=== PATIENT | male | born 1970 | race Caucasian/White ===

== ENCOUNTER 2016-08-02 12:45 | Emergency (ER) | payer OTHER ==
[~2016-08-02] VITALS: Ht 180.3 cm; Wt 113.4 kg
[~2016-08-02 12:45] MED LIST: ECOTRIN81 MG PO; EXCEDRIN EXTRA1 SGL PO; KEFLEX500 MG PO; MOTRIN800 MG PO; PERCOCET 325 MG1 TA2 PO; TEMOVATE0.05% TOP
--- NOTE | 2016-08-02 13:18 | ED EYE COMPLAINT ---
History of Present Illness General Chief Complaint: Eye Problems Stated Complaint: FOREIGN BODY R EYE Source: patient Exam Limitations: no limitations Vital Signs & Intake/Output Vital Signs & Intake/Output Vital Signs Date Time Temp Pulse Resp B/P Pulse O2 O2 Flow FiO2 Ox Delivery Rate 08/02 1319 72 173/88 08/02 1248 96.5 77 16 180/113 96 Room Air Allergies Coded Allergies: iodine (Mild, REDNESS 08/02/16) Reconcile Medications Aspirin (Ecotrin) 81 MG ECT 1 TAB PO DAILY HEART (Reported) ASPIRIN/ACETAMINOPHEN/CAFFEINE (Excedrin Extra Strength Gelcap) (Unknown Strength) SGL (Unknown Dose) PO PRN PAIN (Reported) Cephalexin (Keflex) 500 MG CAP 1 TAB PO 4 TIMES/DAY INFECTION Clobetasol Propionate (Temovate) 0.05% CRE 1 RANI TOP PRN SKIN (Reported) apply to affected area(s) Ibuprofen (Motrin) 800 MG TAB 1 TAB PO TID PRN PAIN OXYCODONE HCL/ACETAMINOPHEN (Percocet 5-325 MG Tablet) 325 MG/5 MG TAB 1 TAB PO Q4-6 PRN PRN BREAKTHROUGH PAIN Polytrim (Polytrim Eye Drops) 10,000 UNIT-1 MG/ML DROPS 1 GTT OPH Q6 FOREIGN BODY USE FOR 7 DAYS Triage Note: PT STATES THAT AROUND 0930 HE WAS USING A NAIL GUN WHEN A PIECE OF METAL HIT HIM IN HIS L EYE , PT DENIES VISION PROBLEMS, SCLERA NOTED TO BE RED Triage Nurses Notes Reviewed? yes HPI: Patient is a 45-year-old male presents complaining of foreign body to his left eye. Patient was using a nail gun when he felt sharp pain to his left eye. This occurred at approximately 9:30 AM this morning. Patient went to an urgent care clinic and was referred to the emergency department for further evaluation. Pain is currently 10 out of 10 sharp pain, worsens with blinking. Patient does not have an eye doctor. (THI SERRA,STARR) Past History Travel History Traveled to [place] past 21 day No Medical History Any Pertinent Medical History? see below for history Neurological: NONE EENT: NONE Cardiovascular: myocardial infarction, CARDIAC STENT Respiratory: NONE Gastrointestinal: NONE Renal: NONE Musculoskeletal: NONE Psychiatric: NONE Endocrine: NONE Blood Disorders: NONE Cancer(s): NONE [employer]/Reproductive: NONE Tetanus Vaccine: 05/23/13 Surgical History Surgical History: non-contributory Psychosocial History Who do you live with Spouse What is your primary language Frisian Tobacco Use: Never used ETOH Use: denies use Illicit Drug Use: denies illicit drug use Family History Hx Contributory? No (STARR NEFF) Review of Systems Review of Systems Constitutional: Reports: no symptoms. Eyes: Reports: see HPI. Musculoskeletal: Reports: no symptoms. Skin: Reports: no symptoms. Neurological/Psychological: Reports: headache. Hematologic/Endocrine: Denies: bruising, bleeding. Immunologic/Allergic: Denies: splenectomy. (STARR NEFF) Physical Exam General Appearance: well developed/nourished, alert, awake General Inspection: metallic foreign body present in the left medial eye. Mild surrounding injection. Pupil equal, round, reactive. Extraocular movements intact. Eyelid: normal inspection Conjunctiva/Sclera: foreign material Cornea: examined w/fluorescein, foreign body EOM: intact Pupil: normal accommodation General Inspection: normal inspection Physical Exam Head: atraumatic, normal appearance Nose: normal inspection Mouth/Throat: normal mouth inspection Neck: normal inspection, supple, full range of motion Cardiovascular/Respiratory: no respiratory distress Neurologic/Psych: no motor/sensory deficits, awake, alert, oriented x 3, normal gait, normal mood/affect Skin: intact, normal color, warm/dry (STARR NEFF) Progress Differential Diagnosis: corneal abrasion, corneal foreign body, globe rupture Plan of Care: Visual acuity 20/30 left eye, 20/20 both eyes with snellen eye chart. 4 drops of tetracaine instilled to left eye. Unable to remove foreign body with cotton swab. Tweezers used and a 0.5 cm metallic foreign body was removed. Appears that there is a very small remaining metallic foreign body that I was unable to remove. This was discussed with the patient and the importance of close ophthalmology follow-up discussed. (STARR NEFF) Departure Departure Time of Disposition: 1318 Disposition: HOME OR SELF CARE Condition: Stable Clinical Impression Primary Impression: Foreign body of left eye Qualifiers: Encounter type: initial encounter Qualified Code: T15.92XA - Foreign body on external eye, part unspecified, left eye, initial encounter Referrals: ALEXA MOREAU MD PATIENT HAS NO PRIMARY CARE DR (PCP/Family) CASH JACOBS MD Additional Instructions: Use the antibiotic eyedrops as directed. Follow-up with Dr. Jacobs(eye doctor) on Thursday, call Thursday morning for appointment. Return to the emergency Department immediately if increasing pain, vision worsening, or worsening of symptoms. Follow up with Dr. Moreau(primary doctor) to establish a primary doctor and for further evaluation of your blood pressure that was elevated in the emergency department. Departure Forms: Customer Survey General Discharge Information Prescriptions: Current Visit Scripts Polytrim (Polytrim Eye Drops) 1 GTT OPH Q6 #1 BOT USE FOR 7 DAYS (THI SERRA,STARR) PA/INDIGO MIXER Co-Sign Statement Statement: ED Attending supervision documentation- [] I saw and evaluated the patient. I have also reviewed all the pertinent lab results and diagnostic results. I agree with the findings and the plan of care as documented in the PA's/INDIGO MIXER's documentation. [X] I have reviewed the ED Record and agree with the PA's/INDIGO MIXER's documentation. [] Additions or exceptions (if any) to the PAs/INDIGO MIXER's note and plan are summarized below: [] (STEPHANIE VENEGAS,DEONDRE)
[2016-08-02 13:19] VITALS: BP 173/88
[2016-08-02] MEDS ORDERED: POLYTRIM EYE DR10 ML OPH (13:21)
== END 2016-08-02 13:26 ==
LOC: ERH 12:45
DX: T15.92XA Foreign body on external eye, part unspecified, left eye, initial encounter (principal)

== ENCOUNTER 2017-12-27 10:51 | Emergency (ER) | payer SELFPAY ==
[~2017-12-27 10:51] MED LIST changes: +POLYTRIM EYE DR10 ML OPH
--- NOTE | 2017-12-27 11:50 | ED UPPER/LOWER EXTREMITY COMPL ---
History of Present Illness General Chief Complaint: Lower Extremity Problems Stated Complaint: R KNEE SWELLING Source: patient, family Exam Limitations: no limitations Vital Signs & Intake/Output Vital Signs & Intake/Output Vital Signs Date Time Temp Pulse Resp B/P B/P Pulse O2 O2 Flow FiO2 Mean Ox Delivery Rate 12/27 1100 96.6 87 15 143/91 97 Room Air Room Air Allergies Coded Allergies: iodine (Mild, REDNESS 12/27/17) Reconcile Medications Aspirin (Ecotrin) 81 MG ECT 1 TAB PO DAILY HEART (Reported) ASPIRIN/ACETAMINOPHEN/CAFFEINE (Excedrin Extra Strength Gelcap) (Unknown Strength) SGL (Unknown Dose) PO PRN PAIN (Reported) Cephalexin (Keflex) 500 MG CAP 1 TAB PO 4 TIMES/DAY INFECTION Clobetasol Propionate (Temovate) 0.05% CRE 1 RANI TOP PRN SKIN (Reported) apply to affected area(s) Ibuprofen (Motrin) 800 MG TAB 1 TAB PO TID PRN PAIN OXYCODONE HCL/ACETAMINOPHEN (Percocet 5-325 MG Tablet) 325 MG/5 MG TAB 1 TAB PO Q4-6 PRN PRN BREAKTHROUGH PAIN Polytrim (Polytrim Eye Drops) 10,000 UNIT-1 MG/ML DROPS 1 GTT OPH Q6 FOREIGN BODY USE FOR 7 DAYS Triage Note: PT TO ED FOR C/C OF R KNEE PAIN WITHOUT KNOWN INJURY THAT STARTED YESTERDAY AND PAIN RADIATES DOWN LEG. PAIN WORSE WITH AMBULATION. SWELLING NOTED TO ANKLE WHICH IS NEW TODAY. TOOK ALEVE AT HOME BEFORE ARRIVAL. Triage Nurses Notes Reviewed? yes HPI: 47M no significant PMH woke up this morning with right knee swelling and pain. Patient has a history of 5 surgeries on his right knee in [place] many years ago, and gets intermittent pain in his knee from time to time, but not swelling like this. He is ok sitting but has pain when walking. The knee is slightly swollen and warm. He denies any trauma, did not fall or slip, no insect bites or penetrating injuries. Denies fever, chills, nausea, vomiting, chest pain, SOB, abdominal pain. No discharge or wounds surrounding the knee. Has some swelling behind his knee but says this is chronic. Thinks his right foot is slightly bigger than his left from this morning. No immobilization or history of VTE. Past History Travel History Traveled to [place] past 21 day No Medical History Any Pertinent Medical History? 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 No Review of Systems Review of Systems Constitutional: Reports: no symptoms. EENTM: Reports: no symptoms. Respiratory: Reports: no symptoms. Cardiovascular: Reports: no symptoms. Gastrointestinal/Abdominal: Reports: no symptoms. Genitourinary: Reports: no symptoms. Musculoskeletal: Reports: no symptoms. Skin: Reports: no symptoms. Neurological/Psychological: Reports: no symptoms. Hematologic/Endocrine: Reports: no symptoms. Immunological: Reports: no symptoms. All Other Systems: Reviewed and Negative Physical Exam Physical Exam General Appearance: well developed/nourished, no apparent distress Head: atraumatic, normal appearance Eyes: Bilateral: normal appearance. Ears, Nose, Throat: hearing grossly normal Neck: normal inspection, full range of motion Cardiovascular/Respiratory: normal breath sounds, regular rate/rhythm Back: normal inspection, normal range of motion Leg Left: normal range of motion, normal inspection Leg Right: normal range of motion, normal inspection Hip Left: normal range of motion, normal inspection Hip Right: normal range of motion, normal inspection Knee Left: normal range of motion, normal inspection Knee Right: warmth and mild swelling, no tenderness or fluctuance, no erythema Foot Left: normal inspection, normal range of motion Foot Right: normal inspection, normal range of motion Progress Differential Diagnosis: cellulitis, compartment syndrome, dislocation, DVT, fracture, gout, septic arthritis, sprain Plan of Care: Orders Procedure Date/time Status HIGH SENSITIVITY CRP 12/27 1205 Complete WESTERGREN SED RATE 12/27 1205 Complete BLOOD CULTURE 12/27 1149 Active COMPREHENSIVE METABOLIC PANEL 12/27 1149 Complete CBC WITHOUT DIFFERENTIAL 12/27 1149 Complete Laboratory Tests 12/27/17 1205: Anion Gap 9, Estimated GFR > 60, BUN/Creatinine Ratio 21.4, Glucose 111 H, Calcium 9.1, Total Bilirubin 0.4, AST 23, ALT 49, Alkaline Phosphatase 77, C- React Prot High Sens 4.0 H, Total Protein 6.8, Albumin 3.8, Globulin 3.0, Albumin/Globulin Ratio 1.3, CBC w Diff NO MAN DIFF REQ, RBC 4.73, MCV 91.1, MCH 31.2 H, MCHC 34.2, RDW 13.9, MPV 8.7, Gran % 49.6, Lymphocytes % 35.9, Monocytes % 10.0 H, Eosinophils % 4.1, Basophils % 0.4, Absolute Granulocytes 4.8, Absolute Lymphocytes 3.5 H, Absolute Monocytes 1.0 H, Absolute Eosinophils 0.4, Absolute Basophils 0, ESR Westergren 6 12/27/17 1154: C-React Prot High Sens Cancelled, ESR Westergren Cancelled Microbiology 12/27 1205 BLOOD: Blood Culture - RECD 12/27 1149 BLOOD: Blood Culture - ORD Diagnostic Imaging: Viewed by Me: Radiology Read, Ultrasound. Discussed w/RAD: Radiology Read, Ultrasound. Radiology Impression: PATIENT: HERNANDEZ DIEHL PRESENT AGE: 47 PATIENT ACCOUNT NO: [id number] : 70 LOCATION: [facility] ORDERING PHYSICIAN: Pebbles Khan MD SERVICE DATE: 12/27/17 EXAM TYPE: US - US -UNILATERAL VENOUS DOPPLER EXAMINATION: US TRIPLEX LOWER EXTREMITY, RIGHT CLINICAL INFORMATION: Pain. COMPARISON: None TECHNIQUE: Color-flow triplex imaging with spectral analysis and compression Doppler were performed on the lower extremity. FINDINGS: Respiratory variation, normal compression and augmented flow are noted throughout the lower extremity. The visualized common femoral vein, superficial femoral vein, profunda femoral vein, popliteal vein and midcalf peroneal and posterior tibial venous segments show no evidence of deep venous thrombosis. There is a small 1.8 x 2.5 x 1 cm fluid collection in the popliteal fossa. IMPRESSION: No evidence of deep venous thrombosis involving the lower extremity. Small popliteal fossa Nye's cyst. DICTATED BY: Edmundo Coello MD DATE/TIME DICTATED:12/27/171257 PHYSICIAN SUPPORT COORDINATOR:ERI DATE/ TIME TRANSCRIBED:12/27/171257 CONFIDENTIAL, DO NOT COPY WITHOUT APPROPRIATE AUTHORIZATION., PATIENT: HERNANDEZ DIEHL PRESENT AGE: 47 PATIENT ACCOUNT NO: [id number] : 70 LOCATION: [facility] ORDERING PHYSICIAN: Jefry Gallagher MD SERVICE DATE: 12/27/17 EXAM TYPE: RAD - XRY-KNEE COMPLETE RIGHT EXAMINATION: XR KNEE, RIGHT CLINICAL INFORMATION: Right leg swelling and pain. COMPARISON: None TECHNIQUE: Four views of the right knee. FINDINGS: Bulky ossification is present along the superficial surface of the talus and at the superior and inferior patellar poles at the ligamentous and tendinous insertions. There is a linear lucency across the inferior portion of the bulky ossification. Prepatellar soft tissue swelling noted in addition to infrapatellar soft tissue swelling. There is mild degenerative spurring along the articular surface of the medial compartment joint space from the tibia. No significant joint space narrowing is evident. No dislocation is seen. A small joint effusion is evident. IMPRESSION: Heterotopic ossification from presumed enthesophytes overlying the superficial patella with a linear lucency across the inferior portion, suspicious for traumatic injury of indeterminate age. Prepatellar and infrapatellar soft tissue swelling. Small joint effusion. If there is concern for tendinous or ligamentous soft tissue injury, a follow-up MRI could be obtained to exclude an underlying tear. DICTATED BY: Edmundo Coello MD DATE/TIME DICTATED:12/27/171138 PHYSICIAN SUPPORT COORDINATOR:ERI DATE/TIME TRANSCRIBED:12/27/171138 CONFIDENTIAL, DO NOT COPY WITHOUT APPROPRIATE AUTHORIZATION. <Electronically signed in Other Vendor System> SIGNED BY: Edmundo Coello MD 12/27/17 1151 Departure Departure Disposition: HOME OR SELF CARE Condition: Stable Clinical Impression Primary Impression: Knee osteoarthritis Qualifiers: Osteoarthritis type: other secondary Laterality: right Qualified Code: M17.5 - Other unilateral secondary osteoarthritis of knee Referrals: Esa VENEGAS,Juan Pablo Patient Has No Primary Care Dr (PCP/Family) Additional Instructions: Keep your knee elevated. Use ice if swelling for 20 minutes at a time. Ibuprofen with meals. Follow up with orthopedics. Return to ER if new or worsening symptoms. Departure Forms: Customer Survey General Discharge Information
[2017-12-27 12:24] LABS: ABSOLUTE BASOPHIL COUNT 0 /CUMM (0.0-0.2); ABSOLUTE EOSINOPHIL COUNT 0.4 /CUMM (0.0-0.7); ABSOLUTE GRANULOCYTE CT 4.8 /CUMM (1.4-6.5); ABSOLUTE LYMPH COUNT 3.5 /CUMM (1.2-3.4); BASOPHIL % 0.4 % (0.0-2.0); EOSINOPHIL % 4.1 % (0-5); GRANULOCYTE % 49.6 % (42.2-75.2); MEAN CORPUSCULAR HGB 31.2 PG (27.0-31.0); MEAN CORPUSCULAR HGB CONC 34.2 G/DL (33.0-37.0); MEAN CORPUSCULAR VOLUME 91.1 FL (80.0-94.0); MEAN PLATELET VOLUME 8.7 FL (7.4-10.4); PLATELET COUNT 259 /CUMM (130-400); RBC DISTRIBUTION WIDTH 13.9 % (11.5-14.5); RED BLOOD CELL CT 4.73 /CUMM (4.70-6.10); WHITE BLOOD CELL COUNT 9.6 /CUMM (4.8-10.8)
--- NOTE | 2017-12-27 13:03 | ULTRASOUND REPORT ---
EXAMINATION: US TRIPLEX LOWER EXTREMITY, RIGHT CLINICAL INFORMATION: Pain. COMPARISON: None TECHNIQUE: Color-flow triplex imaging with spectral analysis and compression Doppler were performed on the lower extremity. FINDINGS: Respiratory variation, normal compression and augmented flow are noted throughout the lower extremity. The visualized common femoral vein, superficial femoral vein, profunda femoral vein, popliteal vein and midcalf peroneal and posterior tibial venous segments show no evidence of deep venous thrombosis. There is a small 1.8 x 2.5 x 1 cm fluid collection in the popliteal fossa. IMPRESSION: No evidence of deep venous thrombosis involving the lower extremity. Small popliteal fossa Nye's cyst.
[2017-12-27 14:34] VITALS: BP 141/94
== END 2017-12-27 14:34 ==
LOC: ERH 10:51
PROVIDERS: Internal Medicine
DX: M17.11 Unilateral primary osteoarthritis, right knee (principal)
CPT/HCPCS: 73562-RT; 87040